=== PATIENT | female | born 2000 | race Caucasian/White ===

== ENCOUNTER 2023-04-28 21:28 | Outpatient (REF) | payer OTHER, SELFPAY ==
[2023-05-03 16:09] LABS: Age Gdln ACOG Testing Note (.); IGP, rfx Aptima HPV ASCU Note (.)
== END 2023-04-28 21:29 ==
LOC: LAB 21:28
PROVIDERS: PCP Obstetrics & Gynecology; Visit Provider Obstetrics & Gynecology
DX: Z12.4 Encounter for screening for malignant neoplasm of cervix (principal)
CPT/HCPCS: G0145

== ENCOUNTER 2024-03-06 14:30 | Outpatient (OUT) | payer OTHER, SELFPAY ==
[2024-03-06 15:06] LABS: Hematocrit 44.7 % (36.0-48.0); Hemoglobin 14.1 g/dL (12.0-16.0); Mean Corpuscular HGB Conc 31.5 g/dL (29.9-35.2); Mean Corpuscular Hemoglobin 27.8 pg (26.7-34.0); Mean Platelet Volume 11.4 fL (9.5-13.5); Platelet Count 216 10^3/uL (150-450); Red Blood Count 5.08 10^6/uL (4.20-5.40); Red Cell Distribution Width 12.5 % (11.0-15.0); White Blood Count 8.1 10^3/uL (4.0-11.0)
[2024-03-06 16:13] LABS: Alanine Aminotransferase 29 U/L (14-59); Alkaline Phosphatase 85 U/L (46-116); Anion Gap 14.9; Aspartate Amino Transferase 22 U/L (15-37); BUN Creatinine Ratio 9.1; Bilirubin Total 0.5 mg/dL (0.2-1.0); Calcium 9.3 mg/dL (8.5-10.1); Carbon Dioxide 25.9 mmol/L (21.0-32.0); Chloride 103 mmol/L (98-107); Chol HDL Ratio 2.8; Cholesterol 143 mg/dL (<=200); Estimated GFR (African America >60 (>=60); Estimated GFR (Non-African Ame >60 (>=60); Globulin 3.9 g/dL; Glucose 87 mg/dL (74-106); HDL Cholesterol 51 mg/dL (40-60); LDL Cholesterol Calculated 63.2 mg/dL; Potassium 3.8 mmol/L (3.5-5.1); Sodium 140 mmol/L (136-145); TSH W/ REFLEX FT4 1.075 uIU/mL (0.358-3.740); Total Protein 7.9 g/dL (6.4-8.2); Triglycerides 144 mg/dL (<=150); VLDL CHOLESTEROL 28.8 mg/dL
[2024-03-07 05:07] LABS: HCV Ab Non Reactive (Non Reactive); HIV Ab/p24 Ag Screen Non Reactive (Non Reactive)
== END 2024-03-06 14:31 | disposition home or self-care (01) ==
LOC: LAB 14:34
PROVIDERS: PCP Nurse Practitioner; Visit Provider Nurse Practitioner
DX: Z00.00 Encounter for general adult medical examination without abnormal findings (principal); Z13.6 Encounter for screening for cardiovascular disorders; Z11.59 Encounter for screening for other viral diseases; Z11.4 Encounter for screening for human immunodeficiency virus [HIV]; Z13.29 Encounter for screening for other suspected endocrine disorder
CPT/HCPCS: 36415; 80053; 80061; 84443; 85027; 86803; 87389

== ENCOUNTER 2025-01-24 08:31 | Outpatient (OUT) | payer OTHER, SELFPAY ==
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
== END 2025-01-24 08:32 | disposition home or self-care (01) ==
PROVIDERS: PCP Nurse Practitioner; Visit Provider Nurse Practitioner
DX: M54.6 Pain in thoracic spine (principal); M54.50 Low back pain, unspecified; M79.10 Myalgia, unspecified site
CPT/HCPCS: G0463

== ENCOUNTER 2025-03-21 07:38 | Outpatient (OUT) | payer OTHER, SELFPAY ==
--- NOTE | 2025-03-21 07:47 | XR_ITS ---
The [address] [address] Patient Name: HECTOR WREN MRN: [id number] date: 2000 Sex: F Assigned Patient Location: [facility] Current Patient Location: PM Accession/Order Number: [id number] Exam Date: 03/21/2025 13:07 Report Date: 03/21/2025 13:07 At the request of: FANNY DIAZ NP Procedure: XR thoracic spine 2V THORACIC SPINE - - 3 views CLINICAL HISTORY: Chronic Thoracic Pain COMPARISON: None FINDINGS: Vertebral body and disc space heights appear maintained. Pedicles appear intact. Minimal degenerative change. XR/XR thoracic spine 2V IMPRESSION: MINIMAL DEGENERATIVE CHANGE. NO ACUTE BONY PROCESS. Impression dictated by: Pilo Buckner Jr.OGloria03/21/2025 1:07 PM Dictation Location: [place] [address] Electronically authenticated by: [id number] Y Date: 03/21/2025 13:07
--- NOTE | 2025-03-21 07:47 | XR_ITS ---
The [place] [id number] Patient Name: HECTOR WREN MRN: [id number] date: 2000 Sex: F Assigned Patient Location: [facility] Current Patient Location: PM Accession/Order Number: [id number] Exam Date: 03/21/2025 13:07 Report Date: 03/21/2025 13:09 At the request of: FANNY DIAZ NP Procedure: XR lumbar spine min 4V LUMBAR SPINE - 5 views CLINICAL HISTORY: Lumbar Pain COMPARISON: . FINDINGS: Vertebral body and disc space heights appear maintained. Facet joints appear unremarkable. XR/XR lumbar spine min 4V IMPRESSION: NO ACUTE BONY PROCESS OR SIGNIFICANT DEGENERATIVE CHANGE. Impression dictated by: Alfredo Jimenes Jr., DGloriaOGloria03/21/2025 1:09 PM Dictation Location: [place] [address] Electronically authenticated by: [id number] Y Date: 03/21/2025 13:09
== END 2025-03-21 07:39 | disposition home or self-care (01) ==
LOC: RAD 07:43
PROVIDERS: PCP Nurse Practitioner; Visit Provider Nurse Practitioner
DX: M54.6 Pain in thoracic spine (principal); M54.50 Low back pain, unspecified
CPT/HCPCS: 72070; 72110

== ENCOUNTER 2025-03-28 14:48 | Outpatient (OUT) | payer OTHER, SELFPAY ==
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
== END 2025-03-28 14:49 | disposition home or self-care (01) ==
LOC: PM 14:48
PROVIDERS: PCP Nurse Practitioner; Visit Provider Nurse Practitioner
DX: M79.18 Myalgia, other site (principal); M54.6 Pain in thoracic spine; M54.50 Low back pain, unspecified
CPT/HCPCS: G0463